=== PATIENT | female | born 1990 | race Caucasian/White ===

== ENCOUNTER 2017-06-10 20:48 | Inpatient (IN) | payer OTHER ==
[~2017-06-10] VITALS: Ht 162.6 cm; Wt 101.6 kg
[~2017-06-10 20:48] MED LIST: ENDOCET 5-3251 EACH PO; FLEXERIL5 MG PO; IBUPROFEN800 MG PO; LASIX20 MG PO; MYLICON,MYLANTA80 MG PO; Motrin PO; NATALCARE RX1 TABLET PO; NOHOMEMEDS; PRENATAL TABLE1 EAC3 PO; PRENATAL VITAM1 EAC3 PO; PROTONIX IV40 MG PO; PROTONIX40 MG PO; Percocet 5/325,Endoc PO; SUCRALFATE1 GM PO; TYLENOL REGULA325 MG PO; ZITHROMAX500 MG PO; Zofran PO
[2017-06-10 21:00] VITALS: BP 144/67
[2017-06-10 21:45] LABS: BASOPHIL COUNT 0.1 K/uL (0-0.1); EOSINOPHIL COUNT 0.2 K/uL (0-0.3); HEMATOCRIT 35.7 % (36.0-46.0); IMMATURE GRANULOCYTE (%) 3.9 % (0.0-0.7); IMMATURE GRANULOCYTE COUNT 0.7 K/uL; INSTRUMENT ABS NEUTROPHIL CT 12.3 K/uL; LYMPHOCYTE COUNT 3.1 K/uL (1.0-2.8); MCH 28.9 PG (29.0-34.0); MCHC 32.5 G/DL (30.0-36.0); MCV 88.8 FL (83-99); MEAN PLAT.VOLUME 11.3 uM^3 (9.5-12.4); MONOCYTE (%) 7.7 % (3-12); MONOCYTE COUNT 1.4 K/uL (0-0.8); NEUTROPHIL (%) 69.4 % (45-76); NEUTROPHIL COUNT 12.3 K/uL (1.8-6.4); PLATELET COUNT 320 K/uL (156-360); RBC DIS.WIDTH-CV 14.2 % (11.8-14.6); RBC DIS.WIDTH-SD 45.6 % (39-53); RED BLOOD COUNT 4.02 M/uL (3.80-5.20); WHITE BLOOD COUNT 17.7 K/uL (4.1-10.2)
[2017-06-10 21:54] VITALS: BP 130/71
[2017-06-10 22:56] VITALS: BP 131/70
[2017-06-11] VITALS (45 sets, daily range): BP systolic 107–181; BP diastolic 56–86
[2017-06-12] VITALS (12 sets, daily range): BP systolic 108–147; BP diastolic 55–82
[2017-06-12] MEDS ORDERED: MOTRIN800 MG PO (01:38)
[2017-06-13 08:15] VITALS: BP 132/84
== END 2017-06-13 15:00 | disposition home or self-care (01) | DRG 775 ==
LOC: LDRP-OP 20:48 → 2WEST 20:49 → LDRP-OP 07-18 16:29
PROVIDERS: Advanced Practice Midwife
PROC: 3E0P7GC Introduction of Other Therapeutic Substance into Female Reproductive, Via Natural or Artificial Opening (ICD-10-PCS; principal; 2017-06-10)
PROC: 3E033VJ Introduction of Other Hormone into Peripheral Vein, Percutaneous Approach (ICD-10-PCS; principal; 2017-06-10)
PROC: 00HU33Z Insertion of Infusion Device into Spinal Canal, Percutaneous Approach (ICD-10-PCS; 2017-06-11)
PROC: 3E0S3CZ (ICD-10-PCS; 2017-06-11)
PROC: 10907ZC Drainage of Amniotic Fluid, Therapeutic from Products of Conception, Via Natural or Artificial Opening (ICD-10-PCS; 2017-06-11)
PROC: 10E0XZZ Delivery of Products of Conception, External Approach (ICD-10-PCS; 2017-06-12)
DX: O36.63X0 Maternal care for excessive fetal growth, third trimester, not applicable or unspecified (principal); Z3A.39 39 weeks gestation of pregnancy; E66.01 Morbid (severe) obesity due to excess calories; O99.214 Obesity complicating childbirth; Z68.39 Body mass index [BMI] 39.0-39.9, adult; O99.344 Other mental disorders complicating childbirth; F41.9 Anxiety disorder, unspecified; Z87.440 Personal history of urinary (tract) infections; Z37.0 Single live birth; O99.284 Endocrine, nutritional and metabolic diseases complicating childbirth; E78.5 Hyperlipidemia, unspecified; O69.81X0 Labor and delivery complicated by cord around neck, without compression, not applicable or unspecified
CPT/HCPCS: 85025; C1755; G0378; J1050; J2405; J3010; J7120